=== PATIENT | female | born 1995 | race Caucasian/White ===

== ENCOUNTER 2019-07-31 16:40 | Emergency (ER) | payer OTHER ==
[~2019-07-31] VITALS: Ht 154.9 cm; Wt 101.6 kg
[~2019-07-31 16:40] MED LIST: CEPH-443 PO; IBUP800T48 PO
[2019-07-31 16:46] VITALS: Ht 154.9 cm; Wt 101.6 kg
[2019-07-31] MEDS ORDERED: IBUPROFEN 800 MG TAB PO ONE (18:00)
[2019-07-31 20:44] VITALS: BP 137/78; PULSE 63; RESP 18
== END 2019-07-31 20:45 | disposition home or self-care (01) ==
LOC: FTE 16:40
DX: N39.0 Urinary tract infection, site not specified (principal); N83.202 Unspecified ovarian cyst, left side
CPT/HCPCS: 76830; 76856; 81001; 81025; 87086; Z7610